=== PATIENT | male | born 1960 | race Caucasian/White ===

== ENCOUNTER 2021-07-26 10:33 | Observation (INO) | payer BC, OTHER ==
[~2021-07-26] VITALS: Ht 152.4 cm; Wt 74.8 kg
[2021-07-26] MEDS ORDERED: SODIUM CHLORIDE 0.9% 500ML 500 ML IV ONE (10:45)
[2021-07-26] MEDS ORDERED: HYDRALAZINE HCL 20 MG/ML VIAL IV STA (10:53)
[2021-07-26 11:29] LABS: BASOPHILS % 0.4 % (0.0-1.0); EOSINOPHILS # (AUTO) 0.1 (0.0-0.4); EOSINOPHILS % 0.9 % (0.0-6.0); HEMATOCRIT 47.1 % (38.2-49.6); LYMPHOCYTES # (AUTO) 2.5 (1.0-3.2); LYMPHOCYTES % 23.4 % (18.0-39.1); MEAN CORPUSCULAR HEMOGLOBIN 30.2 pg (28-32); MEAN CORPUSCULAR VOLUME 88.9 fL (81-99); MONOCYTES # (AUTO) 1.1 (0.2-0.8); MONOCYTES % 10.5 % (4.4-11.3); NEUTROPHILS # (AUTO) 6.8 (2.1-6.9); NEUTROPHILS % 64.4 % (38.7-80.0); PLATELET COUNT 205 x10e3/uL (140-360); RED CELL DISTRIBUTION WIDTH 12.1 % (11.7-14.4)
[2021-07-26 11:40] LABS: INR 0.91
[2021-07-26 11:41] LABS: PARTIAL THROMBOPLASTIN TIME 26.1 seconds (23.8-35.5)
[2021-07-26 11:44] LABS: ALBUMIN 3.9 g/dL (3.5-5.0); CALCIUM 9.6 mg/dL (8.4-10.2); CREATININE, SERUM 0.96 mg/dL (0.72-1.25)
[2021-07-26 11:50] LABS: CREATINE KINASE MB 1.3 ng/mL (0-5.0)
[2021-07-26] MEDS ORDERED: LABETALOL HCL 20 ML ONE (11:59)
[2021-07-26] MEDS ORDERED: LABETALOL HCL 5 MG/ML 20ML VIAL IV ONE (12:30)
[2021-07-26] MEDS ORDERED: ACETAMINOPHEN 325 MG TAB PO ONE (12:30)
[2021-07-26] MEDS ORDERED: ONDANSETRON HCL INJ 2MG/ML 2ML 2 MG/ML VIAL IV STA (12:35)
[2021-07-26] MEDS ORDERED: SODIUM CHLORIDE 0.9% 1000ML 1,000 ML ONE (12:39)
[2021-07-26] MEDS ORDERED: SODIUM CHLORIDE 0.9% 1000ML 1,000 ML IV ONE (12:45)
[2021-07-26 14:15] LABS: CLARITY,URINE SL CLOUDY (CLEAR); COLOR,URINE AMBER (YELLOW); KETONES,URINE NEGATIVE (NEGATIVE); LEUKOCYTE ESTERASE ,URINE NEGATIVE (NEGATIVE); NITRITE,URINE NEGATIVE (NEGATIVE); PROTEIN,URINE DIPSTICK 2+ (NEGATIVE); URINE UROBILINOGEN 0.2 mg/dL (0.2 - 1)
[2021-07-26 14:17] LABS: AMPHETAMINES SCREEN,URINE NEGATIVE (NEGATIVE); BENZODIAZEPINES SCREEN,URINE POSITIVE (NEGATIVE); PHENCYCLIDINE SCREEN,URINE NEGATIVE (NEGATIVE)
[2021-07-26] MEDS: AMOXICILLIN/CLAVULANATE K 875 MG TAB PO SCH ×2 (14:37→20:20)
[2021-07-26] MEDS ORDERED: ONDANSETRON HCL INJ 2MG/ML 2ML 2 MG/ML VIAL IV PRN (14:45)
[2021-07-26] MEDS: OFLOXACIN 0.3% (OTIC SOL) 5 ML BTL EACH EAR SCH ×2 (15:08→16:17)
[2021-07-26] MEDS: METOPROLOL TARTRATE 25 MG TAB PO SCH (18:52)
[2021-07-26 19:34] LABS: CREATINE KINASE MB 0.4 ng/mL (0-5.0)
[2021-07-26] MEDS: KETOROLAC TROMETHAMINE 30 MG/ML VIAL IV PRN (20:15)
[2021-07-26 22:30] VITALS: BP 164/104
[2021-07-26 23:00] VITALS: BP 164/104
[2021-07-27] VITALS (7 sets, daily range): BP systolic 149–183; BP diastolic 85–96
[2021-07-27] MEDS: KETOROLAC TROMETHAMINE 30 MG/ML VIAL IV PRN ×4 (01:35→22:32)
[2021-07-27 05:00] LABS: BASOPHILS % 0.4 % (0.0-1.0); EOSINOPHILS # (AUTO) 0.1 (0.0-0.4); EOSINOPHILS % 1.2 % (0.0-6.0); HEMATOCRIT 40.8 % (38.2-49.6); HEMOGLOBIN 13.7 g/dL (14.0-18.0); LYMPHOCYTES # (AUTO) 2.3 (1.0-3.2); LYMPHOCYTES % 28.9 % (18.0-39.1); MEAN CORPUSCULAR HEMOGLOBIN 30.3 pg (28-32); MEAN CORPUSCULAR HGB CONC 33.6 g/dL (31-35); MEAN CORPUSCULAR VOLUME 90.3 fL (81-99); MONOCYTES % 12.3 % (4.4-11.3); NEUTROPHILS # (AUTO) 4.4 (2.1-6.9); NEUTROPHILS % 56.8 % (38.7-80.0); PLATELET COUNT 187 x10e3/uL (140-360); RED BLOOD COUNT 4.52 x10e6/uL (4.3-5.7); RED CELL DISTRIBUTION WIDTH 12.4 % (11.7-14.4)
[2021-07-27 05:47] LABS: ALANINE AMINOTRANSFERASE 25 IU/L (0-55); ALBUMIN 3.2 g/dL (3.5-5.0); ALBUMIN/GLOBULIN RATIO 0.9 (0.8-2.0); ALKALINE PHOSPHATASE 31 IU/L (40-150); ANION GAP 15.1 mmol/L (8-16); BLOOD UREA NITROGEN 14 mg/dL (7-26); BUN/CREATININE RATIO 14 (6-25); CALCIUM 9.1 mg/dL (8.4-10.2); CARBON DIOXIDE 24 mmol/L (22-29); CHLORIDE 103 mmol/L (98-107); CHOL/HDL RATIO 6.4 (3.9-4.7); CHOLESTEROL 186 MD/DL (0-199); CREATININE, SERUM 1.03 mg/dL (0.72-1.25); EST GLOMERULAR FILTRATION RATE 74 ML/MIN (60-); GLUCOSE 188 mg/dL (74-118); HDL CHOLESTEROL 29 MG/DL (40-60); POTASSIUM 4.1 mmol/L (3.5-5.1); SODIUM 138 mmol/L (136-145)
[2021-07-27 06:13] LABS: TRIGLYCERIDES 404 MG/DL (0-149)
[2021-07-27 06:19] LABS: CREATINE KINASE MB 0.7 ng/mL (0-5.0)
[2021-07-27] MEDS: METOPROLOL TARTRATE 25 MG TAB PO SCH (06:30)
[2021-07-27] MEDS ORDERED: ONDANSETRON HCL 4 MG ORAL DISINTEGRATING TAB PO PRN (08:15)
[2021-07-27 08:40] LABS: CREATINE KINASE 71 IU/L (30-200)
[2021-07-27] MEDS: OFLOXACIN 0.3% (OTIC SOL) 5 ML BTL EACH EAR SCH ×3 (09:00→21:30)
[2021-07-27] MEDS: AMOXICILLIN/CLAVULANATE K 875 MG TAB PO SCH ×2 (10:30→21:05)
[2021-07-27] MEDS ORDERED: METOPROLOL TART25 MG PO (15:36)
[2021-07-27] MEDS ORDERED: CIPRO500 MG PO (15:37)
[2021-07-27] MEDS ORDERED: PREDNISONE20 MG PO (15:38)
[2021-07-27] MEDS: HYDRALAZINE HCL 20 MG/ML VIAL IV PRN ×2 (15:50→23:54)
[2021-07-27] MEDS: METOPROLOL TARTRATE 50 MG TAB PO SCH (17:32)
[2021-07-27] MEDS: OLMESARTAN 20 MG TAB PO SCH (18:39)
[2021-07-27] MEDS ORDERED: OFLOXACIN 0.3% (OTIC SOL) 5 ML BTL ONE (19:34)
[2021-07-27] MEDS ORDERED: DEXTROSE 50% SYRINGE 50 ML IV PRN (20:30)
[2021-07-27] MEDS: INSULIN LISPRO 100 UNIT/1 ML 3ML VIAL SQ SCH (21:39)
[2021-07-28 00:03] VITALS: BP 173/80
[2021-07-28 00:44] VITALS: BP 173/80
[2021-07-28] MEDS: METOPROLOL TARTRATE 50 MG TAB PO SCH ×2 (05:15→17:02)
[2021-07-28 05:26] VITALS: BP 180/104
[2021-07-28] MEDS: INSULIN LISPRO 100 UNIT/1 ML 3ML VIAL SQ SCH ×3 (08:15→17:02)
[2021-07-28] MEDS: AMOXICILLIN/CLAVULANATE K 875 MG TAB PO SCH (08:16)
[2021-07-28 08:17] VITALS: BP 155/101
[2021-07-28] MEDS: OLMESARTAN 20 MG TAB PO SCH (08:17)
[2021-07-28 08:21] VITALS: BP 155/101
[2021-07-28] MEDS: OFLOXACIN 0.3% (OTIC SOL) 5 ML BTL EACH EAR SCH ×2 (10:33→17:02)
[2021-07-28 11:08] VITALS: BP 170/98
[2021-07-28] MEDS ORDERED: OLMESARTAN 20 MG TAB PO ONE (13:00)
[2021-07-28] MEDS: HYDRALAZINE HCL 20 MG/ML VIAL IV PRN (13:28)
== END 2021-07-28 17:40 | disposition home or self-care (01) ==
LOC: ER 10:42 → ERHOLD 14:43 → IMCU 22:03 → MED/SURG3 22:11
PROVIDERS: ADMIT Family Medicine; ATTEND Family Medicine
DX: I16.0 Hypertensive urgency (principal); H92.03 Otalgia, bilateral; I48.91 Unspecified atrial fibrillation; Z79.01 Long term (current) use of anticoagulants; H60.23 Malignant otitis externa, bilateral; M25.552 Pain in left hip; M25.551 Pain in right hip; Z20.822 Contact with and (suspected) exposure to COVID-19
CPT/HCPCS: 36415; 70450; 71045; 80053; 80061; 80307; 81001; 82550; 82553; 82948; 83880; 84484; 85025; 85610; 85730; 93005; 94799; 96372; 99284; G0378; J0360; J1885; J2405; J7030; J7040; U0002